=== PATIENT | female | born 1965 | race Caucasian/White ===

== ENCOUNTER 2020-11-15 07:26 | Day surgery (SDC) | payer OTHER, SELFPAY ==
[~2020-11-15] VITALS: Ht 134.6 cm; Wt 48.5 kg
[2020-11-15] MEDS ORDERED: fentaNYL citrate 0.05 MG/ML VIAL ONE (09:40)
[2020-11-15] MEDS ORDERED: LIDOCAINE 2% 100 MG/5 ML UJET TP ONE (09:40)
[2020-11-15] MEDS ORDERED: fentaNYL citrate 0.05 MG/ML VIAL IVP ONE (11:50)
== END 2020-11-15 10:55 | disposition home or self-care (01) ==
LOC: MOR 07:26 → MMU 07:26 → MOR 10:55
PROVIDERS: ATTEND Internal Medicine Gastroenterology
DX: Z12.11 Encounter for screening for malignant neoplasm of colon (principal); Z79.899 Other long term (current) drug therapy; Z20.822 Contact with and (suspected) exposure to COVID-19
CPT/HCPCS: 45378; 87426; J3010